=== PATIENT | female | born 1985 | race Two or more races ===

== ENCOUNTER 2025-05-13 22:10 | Emergency (ER) | payer OTHER ==
[~2025-05-13] VITALS: Ht 152.4 cm; Wt 54.0 kg
[2025-05-14] LABS: BASO % 0.3 % (0.1-1.2); EOS # 0.14 (0.04-0.54); EOS % 1.3 % (0.7-7.0); LYMPH # 2.46 (1.18-3.74); LYMPH % 23.6 % (19.3-53.1); MEAN PLATELET VOLUME 10.00 fl (9.4-12.4); MONO # 0.92 (0.24-0.82); MONO % 8.8 % (4.7-12.5); NEUT # 6.83 (1.56-6.13); NEUT % 65.4 % (34.0-71.1); RED CELL DISTRIBUTION WIDTH 13.5 % (11.6-14.4)
[2025-05-14 00:20] LABS: INR 0.96
[2025-05-14 00:39] LABS: BUN CREA RATIO 16.0 (7.0-25.0); CREATININE SERUM 0.5 mg/dL (0.55-1.02); GFR 138.08; GLUCOSE FASTING 92.0 mg/dL (65-100); OSMOLALITY SERUM 281.0 MOSM/KG (275-295)
[2025-05-14 00:40] LABS: HCG QUANTITATIVE 22828.0 mUI/mL (1-3)
[2025-05-14 00:54] LABS: URINE APPEARANCE Clear; URINE BILIRRUBIN Negative (NEGATIVE); URINE BLOOD Small; URINE COLOR Yellow; URINE GLUCOSE Negative (NEGATIVE); URINE KETONE Negative (NEGATIVE); URINE LEUKOCYTE Negative; URINE NITRATE Negative; URINE PROTEIN Negative (NEGATIVE); URINE UROBILINOGEN 0.2 E.U./dl
[2025-05-14 00:58] LABS: URINE BACTERIA 211.0 uL (0.0-1933); URINE CAST 0.00 uL (0.0-1.40); URINE EPITHELIAL CELLS 16.5 uL (0.0-38.8); URINE RBC 2.4 uL (0.0-20.8); URINE WBC 0.9 uL (0.0-23.2)
[2025-05-14] MEDS ORDERED: RINGERS SOLUTION,LACTATED 1,000 ML IV ONE (02:30)
== END 2025-05-14 11:44 | disposition home or self-care (01) ==
LOC: ER 22:11
PROVIDERS: General Practice
DX: O20.8 Other hemorrhage in early pregnancy (principal); Z3A.16 16 weeks gestation of pregnancy